=== PATIENT | male | born 1975 | race Caucasian/White ===

== ENCOUNTER 2021-08-16 18:14 | Emergency (ER) | payer SELFPAY ==
[2021-08-16] MEDS ORDERED: Xylocaine 1% w/ Epi 1:100K 10 ML VIAL ONE (19:33)
[2021-08-16] MEDS ORDERED: Morphine 4 MG/ML VIAL ONE (20:16)
[2021-08-16] MEDS ORDERED: PROPOFOL 20 ML ONE (20:16)
[2021-08-16] MEDS ORDERED: Bacitracin 1 PK ONE (21:48)
== END 2021-08-16 22:15 | disposition home or self-care (01) ==
LOC: ERS 18:14
DX: S61.431A Puncture wound without foreign body of right hand, initial encounter (principal); W45.8XXA Other foreign body or object entering through skin, initial encounter; Z21 Asymptomatic human immunodeficiency virus [HIV] infection status; F17.200 Nicotine dependence, unspecified, uncomplicated
CPT/HCPCS: 64450; 96372; 99152; J2270; J2704

== ENCOUNTER 2022-02-27 11:51 | Emergency (ER) | payer OTHER, SELFPAY ==
[2022-02-27 13:38] LABS: #Basophils 0.1 thou/uL (0.0-0.2); #Monocytes 0.5 thou/uL (0.11-0.59); #Neutrophils 6.8 thou/uL (1.40-6.50); %Basophils 0.9 % (0.0-1.0); %Eosinophils 0.3 % (0.0-10.0); %Lymphocytes 12.3 % (21.0-51.0); %Monocytes 5.7 % (0.0-10.0); %Neutrophils 80.9 % (42.0-75.0); Hemoglobin 15.1 g/dL (14.0-18.0); Mean Corpuscular HGB CONC 33.9 g/dL (32.0-36.0); Mean Corpuscular Hemoglobin 32.3 pg (27.0-31.0); Mean Corpuscular Volume 95.4 fL (78.0-98.0); Mean Platelet Volume 6.9 fL (7.4-10.4); Platelet Count 269 thou/uL (130-400); RBC Distribution Width 11.7 % (11.5-14.5); Red Blood Cell (RBC) Count 4.67 mill/uL (4.70-6.10); White Blood Cell (WBC) Count 8.4 thou/uL (4.8-10.8)
[2022-02-27 14:02] LABS: ALT (SGPT) 21 U/L (8-55); AST (SGOT) 26 U/L (5-34); Albumin 4.1 g/dL (3.5-5.0); Alkaline Phosphatase 62 U/L (40-110); Anion Gap 15 mmol/L (10-20); BUN (Urea Nitrogen) 18 mg/dL (8.9-20.6); Bilirubin, Total 0.6 mg/dL (0.2-1.2); Calc. Creatinine Clearance 0 mL/min (70-130); Calcium 9.8 mg/dL (7.8-10.44); Carbon Dioxide 20 mmol/L (22-29); Chloride 105 mmol/L (98-107); Estimated GFR 51; Globulin 3.7 g/dL (2.4-3.5); Glucose 118 mg/dL (70-105); Potassium 4.3 mmol/L (3.5-5.1); Protein, Total 7.8 g/dL (6.0-8.3); Sodium 136 mmol/L (136-145)
[2022-02-27] MEDS ORDERED: Morphine 4 MG/ML VIAL ONE (14:06)
[2022-02-27] MEDS ORDERED: Ondansetron PF 4 MG/2 ML Vial ONE (14:06)
[2022-02-27] MEDS ORDERED: Ketorolac Tromethamine 30 MG/ML VIAL ONE (15:21)
[2022-02-27 16:48] LABS: Bacteria/HPF None Seen HPF (None Seen); Bilirubin Negative (Negative); Blood, Urine 2+ (Negative); Clarity Clear (Clear); Glucose, Urine (Dipstick) Normal (Negative); Ketone, Urine Negative (Negative); Leukocyte Negative Leu/uL (Negative); Nitrite Negative (Negative); Protein, Urine (Dipstick) 10 mg/dL (Neg-Trace); RBC/HPF 21-50 HPF (0-3); Specific Gravity, Urine 1.027 (1.002-1.036); Squamous Epithelial None Seen HPF (0-3); Urobilinogen Normal mg/dL (Less than 2); WBC/HPF 0-3 HPF (0-3); pH, Urine 5.5 (5.0-9.0)
== END 2022-02-27 17:29 | disposition home or self-care (01) ==
LOC: ERS 11:51
DX: N13.2 Hydronephrosis with renal and ureteral calculous obstruction (principal); F17.200 Nicotine dependence, unspecified, uncomplicated
CPT/HCPCS: 36415; 74176; 80053; 81003; 81015; 96361; 96374; 96375; J1885; J2270; J2405

== ENCOUNTER 2022-04-30 23:44 | Emergency (ER) | payer OTHER ==
[2022-05-01 00:36] LABS: #Eosinphils 0.1 thou/uL (0.0-0.7); #Lymphocytes 1.9 thou/uL (1.20-3.40); #Monocytes 0.7 thou/uL (0.11-0.59); #Neutrophils 4.9 thou/uL (1.40-6.50); %Basophils 0.1 % (0.0-1.0); %Eosinophils 0.9 % (0.0-10.0); %Lymphocytes 25.4 % (21.0-51.0); %Monocytes 8.8 % (0.0-10.0); %Neutrophils 64.7 % (42.0-75.0); Hemoglobin 14.3 g/dL (14.0-18.0); Mean Corpuscular HGB CONC 33.1 g/dL (32.0-36.0); Mean Corpuscular Volume 96.6 fl (78.0-98.0); Mean Platelet Volume 6.8 fL (7.4-10.4); Platelet Count 307 10x3/uL (130-400); RBC Distribution Width 11.7 % (11.5-14.5); Red Blood Cell (RBC) Count 4.46 mill/uL (4.70-6.10); White Blood Cell (WBC) Count 7.6 10x3/uL (4.8-10.8)
[2022-05-01 01:01] LABS: ALT (SGPT) 18 U/L (8-55); AST (SGOT) 18 U/L (5-34); Albumin 3.9 g/dL (3.5-5.0); Alkaline Phosphatase 66 U/L (40-110); Anion Gap 14 mmol/L (10-20); BUN (Urea Nitrogen) 21 mg/dL (8.9-20.6); Bilirubin, Total 0.3 mg/dL (0.2-1.2); Calc. Creatinine Clearance 0 mL/min (70-130); Calcium 9.6 mg/dL (7.8-10.44); Carbon Dioxide 23 mmol/L (22-29); Chloride 104 mmol/L (98-107); Estimated GFR 68; Globulin 3.7 g/dL (2.4-3.5); Glucose 124 mg/dL (70-105); Protein, Total 7.6 g/dL (6.0-8.3); Sodium 137 mmol/L (136-145)
[2022-05-01] MEDS ORDERED: HYDROcodone/Acetaminophen 5/325 mg Tablet ONE (01:10)
[2022-05-01] MEDS ORDERED: cefTRIAXone\\ROCEPHIN 500 MG VIAL ONE (02:50)
[2022-05-01] MEDS ORDERED: Ketorolac Tromethamine 30 MG/ML VIAL ONE (02:50)
[2022-05-01] MEDS ORDERED: Vancomycin 1 GM/200 ML (FROZEN) BAG ONE (03:33)
[2022-05-01 04:55] LABS: Bilirubin Negative (Negative); Blood, Urine Negative (Negative); Clarity Clear (Clear); Glucose, Urine (Dipstick) Normal (Negative); Ketone, Urine Negative (Negative); Leukocyte Negative Leu/uL (Negative); Nitrite Negative (Negative); Protein, Urine (Dipstick) Negative (Neg-Trace); Specific Gravity, Urine 1.024 (1.002-1.036); Urobilinogen Normal mg/dL (Less than 2)
== END 2022-05-01 05:23 | disposition home or self-care (01) ==
LOC: ERS 23:44
DX: N49.2 Inflammatory disorders of scrotum (principal); N43.3 Hydrocele, unspecified
CPT/HCPCS: 36415; 76870; 80053; 81003; 83605; 85025; 87086; 93976; 96365; 96366; 96367; 96375; J0696; J1885; J3370-JW

== ENCOUNTER 2022-05-18 16:22 | Emergency (ER) | payer OTHER ==
[2022-05-18] MEDS ORDERED: Bupivacaine 0.25% 10 ML VIAL ONE (17:47)
[2022-05-18] MEDS ORDERED: Lidocaine 1% PF 5 ML VIAL ONE (17:47)
[2022-05-18] MEDS ORDERED: LORazepam 2 MG/ML SYR.(CARPUJECT) ONE (17:55)
[2022-05-18] MEDS ORDERED: FENTANYL 50 MCG/ML 1 ML VIAL ONE (18:14)
[2022-05-18] MEDS ORDERED: Bacitracin 1 PK ONE (18:27)
[2022-05-18] MEDS ORDERED: CEFAZOLIN 1 GM VIAL ONE (18:50)
== END 2022-05-18 20:05 | disposition home or self-care (01) ==
LOC: ERS 16:22
DX: S61.012A Laceration without foreign body of left thumb without damage to nail, initial encounter (principal); B20 Human immunodeficiency virus [HIV] disease; F17.290 Nicotine dependence, other tobacco product, uncomplicated; W27.0XXA Contact with workbench tool, initial encounter
CPT/HCPCS: 12002; 96365; 96375; J0690; J3010; S0020

== ENCOUNTER 2022-05-29 16:19 | Emergency (ER) | payer OTHER | END 2022-05-29 17:32 | disposition home or self-care (01) | LOC: ERS 16:19 | DX: S61.412D Laceration without foreign body of left hand, subsequent encounter (principal) | CPT/HCPCS: 99282 ==